=== PATIENT | female | born 1955 ===

== ENCOUNTER 2018-07-26 23:21 | Observation (INO) | payer OTHER ==
[2018-07-27 00:14] LABS: BASO # 0.1 K/uL (0.0-0.2); BASO % 0.7 % (0.0-2.0); EOS # 0.1 K/uL (0.0-0.7); EOS % 1.4 % (0.0-4.0); HEMOGLOBIN 14.3 g/dL (12.0-16.0); LYMPH # 2.6 K/uL (1.0-4.3); LYMPH % 32.9 % (20.0-40.0); MEAN CELL VOLUME 87.9 fl (81.0-99.0); MEAN CORPUSCULAR HEMOGLOBIN 29.6 pg (27.0-31.0); MEAN CORPUSCULAR HGB CONC 33.7 g/dL (33.0-37.0); MEAN PLATELET VOLUME 8.8 fl (7.2-11.7); MONO # 0.5 K/uL (0.0-0.8); MONO % 6.9 % (0.0-10.0); NEUT # 4.7 K/uL (1.8-7.0); NEUT % 58.1 % (50.0-75.0); NRBC % 0.3 % (0.0-0.0); RBC 4.83 Mil/uL (3.80-5.20); RED CELL DISTRIBUTION WIDTH 14.5 % (11.5-14.5)
[2018-07-27 00:16] LABS: INR 0.9; PROTHROMBIN TIME 10.3 Seconds (9.8-13.1)
--- NOTE | 2018-07-27 00:17 | ED PDOC ---
HPI:STROKE - Time Time: 23:49 - Historian Historian: Spouse - Chief Complaint Chief Complaint: Facial droop - Onset Date: 07/27/18 Onset: This morning - Context Context: Home - Associated Symptoms Associated symptoms:: Headache, Nausea, Vomiting - TPA Positive for Contraindication: Yes Reason tPA is not being Administered: late presentation and mild symptoms - Notes: Notes:: 63 years old female with no significant PMHx presents to ER for evaluation of facial droop that she woke up with this morning. Patient reports she developed headache, nausea and vomiting later in the day. PMD: Saturnino Rios NIHSS Stroke Scale - Date/Time Evaluation Performed Date Performed: 07/27/18 Time Performed: 23:50 When Was NIHSS Performed: Code Stroke - How Severe is the Stroke Level of Consciousness: 0=Alert LOC to Questions: 0=Both comments correct LOC to commands: 0=Obeys both correctly Best Gaze: 0=Normal Visual: 0=No visual loss Facial: 2=Partial (lower face paralysis) (of right side) Motor Arm - Left: 0=No drift Motor Arm - Right: 0=No drift Motor Leg - Left: 0=No drift Motor Leg - Right: 0=No drift Limb Ataxia: 0=Absent Sensory: 0=Normal Best Language: 0=No aphasia Dysarthia: 0=Normal articulation Extinction & Inattention (Neglect): 0=Normal, no object Score: 2 rTPA Inclusion/Exclusion - Refusal of Treatment Patient Refused Treatment: No - Inclusion Criteria for Altepase All of the below criteria for inclusion were reviewed: Yes Patient is 18 years or Older: Yes The Clinical Diagnosis of Ischemic Stroke That is Causing a Potentially Disabling Neurological Deficit: Yes Time of Onset is Well Established to be Less Than 270 Minute Before Treatment Would Begin: Yes Risk/Benefit Discussed With Patient/Family Member Present: Yes - Exclusion Criteria for Altepase Current Intracranial Hemorrhage: No Subarachnoid hemorrhage: No Active Internal Bleeding: No Recent (within 3 months) Intracranial or Intraspinal Surgery: No Presence of intracranial conditions that may increase the risk of bleeding: Not Applicable Bleeding Diathesis Including but not limited to: Not Applicable Current Severe Uncontrolled Hypertension: No Past Medical History Reviewed: Historical Data, Nursing Documentation, Vital Signs Vital Signs: Last Vital Signs Temp 98.3 F 07/26/18 23:44 Pulse 65 07/26/18 23:44 Resp 16 07/26/18 23:44 BP 145/89 07/26/18 23:44 Pulse Ox 98 07/26/18 23:44 - Medical History PMH: No Chronic Diseases - Surgical History Surgical History: No Surg Hx - Family History Family History: States: Unknown Family Hx - Living Arrangements Living Arrangements: With Family - Social History Current smoker - smoking cessation education provided: No Drugs: Denies - Home Medications Home Medications: Ambulatory Orders Medication Instructions Recorded Calcium Carbonate/Vitamin D3 1 tab PO DAILY 07/27/18 [Calcium 500 mg Chewable Tablet] Levothyroxine [Synthroid] 125 mcg PO QAM 07/27/18 [place]-3S/Dha/Epa/Fish Oil [Fish 1 cap PO DAILY 07/27/18 Oil [place]-3 Softgel] - Allergies Allergies/Adverse Reactions: Allergies Allergy/AdvReac Type Severity Reaction Status Date / Time No Known Allergies Allergy Verified 07/26/18 23:44 Review of Systems ROS Statement: Except As Marked, All Systems Reviewed And Found Negative Constitutional: Positive for: Other (Facial droop) Gastrointestinal: Positive for: Nausea, Vomiting Neurological: Positive for: Headache Physical Exam - Reviewed Nursing Documentation Reviewed: Yes Vital Signs Reviewed: Yes - Physical Exam Head Exam: Positive for: ATRAUMATIC. Negative for: NORMAL INSPECTION ((+)right facial droop) Skin: Positive for: Normal Color, Warm, Dry Eye Exam: Positive for: Normal appearance, EOMI, PERRL Neck: Positive for: Normal, Painless ROM, Supple Cardiovascular/Chest: Positive for: Regular Rate, Rhythm. Negative for: Murmur Respiratory: Positive for: Normal Breath Sounds. Negative for: Respiratory Distress Extremity: Positive for: Normal ROM. Negative for: Pedal Edema, Swelling Neurological/Psych: Positive for: Awake, Alert, Normal Tone, Symmetric/Intact Strength, Oriented, Gait (normal), Motor/Sensory Deficits (right facial numbness and droop noted), Facial Droop (righh) - Laboratory Results Result Diagrams: 07/26/18 23:55 07/26/18 23:55 - ECG O2 Sat by Pulse Oximetry: 98 (RA) Pulse Ox Interpretation: Normal - Critical Care Total Time (In Min): 30 Documented Critical Care: Time excludes all time spent performint seperately billable procedures Medical Decision Making Medical Decision Making: Time: 2347 Initial Impression: 63 y/o female with acute right sided facial paralysis, headache and vomiting. Initial Plan: --Type and screen --Head CT w/o contrast --EKG --CMP --Hemoglobin --Lipid panel --Troponin I --CBC --PTT --PT --Chest x-ray --[place] Code stroke activated. 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 Patient will be admitted for acute CVA vs. hill's palsy. [id number] Alvarez, neurologist nurse consultant, who says based on patient's symptoms and late presentation advised TPA and Aspirin. Dr. Alvarez will evaluate patient. [id number] The study shows normal configuration of sella turcica. There are no intra or extra-axial collections. There is no mass effect or midline shift. There is no evidence of hematoma formation. No hydrocephalus is present. No abnormal calcifications are noted. No significant abnormalities are seen either in the posterior fossa or supratentorial compartment. The sinuses and mastoid air cells are patent. IMPRESSION: No evidence of acute intracranial pathology. 0015 Spoke to Deni Child, nurse practitioner in Dr. Rios's office, who accepts patient. ----- Scribe Attestation: Documented by Melissa Brewer, acting as a scribe for Osorio Malagon MD. Provider Scribe Attestation: All medical record entries made by the Scribe were at my direction and personally dictated by me. I have reviewed the chart and agree that the record accurately reflects my personal performance of the history, physical exam, medical decision making, and the department course for this patient. I have also personally directed, reviewed, and agree with the discharge instructions and di sposition. Disposition - Clinical Impression Clinical Impression: Facial droop, CVA (cerebral vascular accident) - Disposition Disposition Time: 00:00 Condition: FAIR - Pt Status Changed To: Hospital Disposition Of: Inpatient - Admit Certification Admit to Inpatient:: After my assessment, the patient will require hospitalization for at least two midnights. This is because of the severity of symptoms shown, intensity of services needed, and/or the medical risk in this patient being treated as an outpatient.
[2018-07-27 00:18] LABS: PARTIAL THROMBOPLASTIN TIME 30.6 Seconds (25.6-37.1)
[2018-07-27 00:20] LABS: ALB/GLOB RATIO 1.3 (1.0-2.1); ALBUMIN 4.6 g/dL (3.5-5.0); ALT/SGPT 49 U/L (9-52); AST/SGOT 31 U/L (14-36); BLOOD UREA NITROGEN 16 mg/dl (7-17); CALCIUM 9.3 mg/dL (8.4-10.2); GFR NON-AFRICAN AMERICAN > 60; HDL CHOLESTEROL 78 MG/DL (30-70)
[2018-07-27 00:31] LABS: LDL CHOLESTEROL 144 mg/dL (0-129)
[2018-07-27] MEDS: Levothyroxine 125 MCG TAB PO SCH (07:00)
--- NOTE | 2018-07-27 07:55 | RAD ---
Date of service: 07/27/2018 HISTORY: Code Stroke COMPARISON: No prior. TECHNIQUE: 1 view obtained. FINDINGS: LUNGS: No active pulmonary disease. PLEURA: No significant pleural effusion identified, no pneumothorax apparent. CARDIOVASCULAR: No aortic atherosclerotic calcification present. Normal cardiac size. No pulmonary vascular congestion. OSSEOUS STRUCTURES: No significant abnormalities. VISUALIZED UPPER ABDOMEN: Normal. OTHER FINDINGS: None. IMPRESSION: No acute cardiopulmonary disease appreciated.
--- NOTE | 2018-07-27 08:38 | CARD ---
APPROVED REPORT Date of service: 07/27/2018 EKG Measurement Heart [id number] <Conclusion> Normal sinus rhythm Low voltage QRS Nonspecific ST and T wave abnormality Abnormal ECG
[2018-07-27] MEDS: Calcium-Vit D 500 mg-200 Units Tab UD PO SCH (08:45)
--- NOTE | 2018-07-27 09:26 | CT ---
Date of service: 07/26/2018 PROCEDURE: CT HEAD WITHOUT CONTRAST. HISTORY: code stroke COMPARISON: None available. TECHNIQUE: Axial computed tomography images were obtained through the head/brain without intravenous contrast. Radiation dose: Total exam DLP = 1040.32 mGy-cm. This CT exam was performed using one or more of the following dose reduction techniques: Automated exposure control, adjustment of the mA and/or kV according to patient size, and/or use of iterative reconstruction technique. FINDINGS: HEMORRHAGE: No intracranial hemorrhage. BRAIN: Normal yun-white matter differentiation and density are appreciated throughout the cerebrum and cerebellum with the brainstem appearing unremarkable as well. There is no mass effect. There is no suspicious extra-axial fluid collection and the midline brain anatomy appears diffusely unremarkable. VENTRICLES: Unremarkable. No hydrocephalus. CALVARIUM: Unremarkable. PARANASAL SINUSES: Unremarkable as visualized. No significant inflammatory changes. MASTOID AIR CELLS: Unremarkable as visualized. No inflammatory changes. OTHER FINDINGS: None. IMPRESSION: Unremarkable unenhanced head CT. Preliminary report provided by Margaret, 07/27/2018, 12:08 a.m..
[2018-07-27 09:34] LABS: ALB/GLOB RATIO 1.2 (1.0-2.1); ALBUMIN 4.3 g/dL (3.5-5.0); ALT/SGPT 52 U/L (9-52); AST/SGOT 28 U/L (14-36); BLOOD UREA NITROGEN 13 mg/dl (7-17); CALCIUM 8.8 mg/dL (8.4-10.2); GFR NON-AFRICAN AMERICAN > 60
[2018-07-27] MEDS: Omega-3-Acid Ethyl Esters 1 GM Cap PO SCH (12:25)
[2018-07-27] MEDS: Artificial Tears Opht Soln OS SCH ×3 (12:26→21:17)
--- NOTE | 2018-07-27 12:58 | CP.PCM.CON ---
History of Present Illness - History of Present Illness History of Present Illness: Neurology Consultation Note: Consultation Requested by Baron Child APN Mrs. Nilay Morales is a 63 y/o female with a PMHx of Hypothyroidism . She was admitted for right sided facial droop that started on 07/23/18, afternoon. Pt states that she came back home after running errands when she began to have a severe headache. Shortly after developing this h/a, she noticed that the right side of her face was "sleepy" and drooping. Pt states that she has been taking Tylenol for her h/a without relief as needed since Thursday. She was concerned about the facial droop because "it didn't seem to have an effect on my arms or legs." She decided to come to the hospital last night because the h/a was unbearable. Pt denies any recent dental work or surgeries, no recent travel, no recent illness or infection. She still has the h/a mildly (approx 3/10 now and is dull); she does have some dizziness. Otherwise she denies vi sual changes, chest pain, palpitations, sob, cough, dysuria, abd pain, n/v/d, paresthesias, fever/chills, fatigue/malaise. Initial CT Head done in the ED was unremarkable. At this time she has had ECHO and Brain MRI completed. We have been consulted to assist in the management and care of this pt. Review of Systems - Constitutional Constitutional: As Per HPI - EENT Eyes: As Per HPI Ears: As Per HPI Nose/Mouth/Throat: As Per HPI - Breasts Breasts: As Per HPI - Cardiovascular Cardiovascular: As Per HPI - Respiratory Respiratory: As Per HPI - Gastrointestinal Gastrointestinal: As Per HPI - Genitourinary Genitourinary: As Per HPI - Reproductive: Female Reproductive:Female: As Per HPI - Menstruation Menstruation: As Per HPI - Musculoskeletal Musculoskeletal: As Per HPI - Integumentary Integumentary: As Per HPI - Neurological Neurological: As Per HPI - Psychiatric Psychiatric: As Per HPI - Endocrine Endocrine: As Per HPI - Hematologic/Lymphatic Hematologic: As Per HPI Past Patient History - Infectious Disease Hx of Infectious Diseases: None - Tetanus Immunizations Tetanus Immunization: Unknown - Past Medical History & Family History Past Medical History?: Yes Past Family History: Reviewed and not pertinent - Past Social History Smoking Status: Never Smoked Chewing Tobacco Use: No Cigar Use: No Occupation: unemployed Alcohol: None Drugs: Denies Home Situation {Lives}: With Family Domestic Violence: Negative - CARDIAC Hx Cardiac Disorders: No - PULMONARY Hx Respiratory Disorders: No - NEUROLOGICAL Hx Neurological Disorder: No - HEENT Hx HEENT Problems: No - RENAL Hx Chronic Kidney Disease: No - ENDOCRINE/METABOLIC Hx Endocrine Disorders: Yes Hx Hypothyroidism: Yes - HEMATOLOGICAL/ONCOLOGICAL Hx Blood Disorders: No - INTEGUMENTARY Hx Dermatological Problems: No - MUSCULOSKELETAL/RHEUMATOLOGICAL Hx Musculoskeletal Disorders: No Hx Falls: No - GASTROINTESTINAL Hx Gastrointestinal Disorders: No - GENITOURINARY/GYNECOLOGICAL Hx Genitourinary Disorders: No - PSYCHIATRIC Hx Psychophysiologic Disorder: No Hx Substance Use: No - SURGICAL HISTORY Hx Surgeries: No - ANESTHESIA Hx Anesthesia: No Hx Anesthesia Reactions: No Hx Malignant Hyperthermia: No Has any member of the family had a problem w/ anesthesia?: No Meds Allergies/Adverse Reactions: Allergies Allergy/AdvReac Type Severity Reaction Status Date / Time No Known Allergies Allergy Verified 07/26/18 23:44 - Medications Medications: Current Medications Acetaminophen (Tylenol 325mg Tab) 650 mg PO Q6 PRN PRN Reason: Pain, Mild (1-3) Acyclovir (Zovirax) 400 mg PO TID [facility]; Protocol Last Admin: 07/27/18 12:26 Dose: 400 mg Artificial Tears (Artificial Tears) 2 drop OS Q4 [facility] Last Admin: 07/27/18 12:26 Dose: 2 units Atorvastatin Calcium (Lipitor) 20 mg PO HS [facility] Calcium/Vitamin D (Oyster Shell Calcium/Vitamin D 500 Mg-200 Iu) 1 tab PO DAILY [facility] Last Admin: 07/27/18 08:45 Dose: 1 tab Levothyroxine Sodium (Synthroid) 125 mcg PO DAILY@0630 [facility] Last Admin: 07/27/18 07:00 Dose: 125 mcg Iiilr-4-Xtlz Ethyl Esters (Lovaza) 2 gm PO DAILY [facility] Last Admin: 07/27/18 12:25 Dose: 2 gm Prednisone (Prednisone Tab) 60 mg PO DAILY [facility] Last Admin: 07/27/18 12:25 Dose: 60 mg Tramadol HCl (Ultram) 50 mg PO Q6 PRN PRN Reason: Pain, moderate (4-7) Physical Exam - Constitutional Appears: Well, Non-toxic, No Acute Distress - Head Exam Head Exam: ATRAUMATIC, NORMOCEPHALIC - Eye Exam Eye Exam: EOMI, PERRL. absent: Normal appearance Pupil Exam: NORMAL ACCOMODATION, PERRL Additional comments: Pupils reactive b/l Unable to close right eye completely No diplopia on exam - ENT Exam ENT Exam: Mucous Membranes Moist, Normal Exam - Neck Exam Neck exam: Positive for: Full Rom, Normal Inspection - Respiratory Exam Respiratory Exam: NORMAL BREATHING PATTERN - Cardiovascular Exam Cardiovascular Exam: REGULAR RHYTHM - GI/Abdominal Exam GI & Abdominal Exam: Normal Bowel Sounds, Soft - Extremities Exam Extremities exam: Positive for: full ROM, normal inspection. Negative for: calf tenderness, pedal edema - Back Exam Back exam: FULL ROM, NORMAL INSPECTION - Neurological Exam Neurological exam: Alert, Normal Gait, Oriented x3, Reflexes Normal Additional comments: AAOx3 Speech clear, fluid; no dysarthria; no aphasia Pupils reactive b/l Unable to close right eye completely No diplopia on exam + flattened right side forehead compared to left + right sided facial droop FROM to all extremities; no sensory deficits to extremities. No tremors or abnormal movements Gait steady - Psychiatric Exam Psychiatric exam: Normal Affect, Normal Mood - Skin Skin Exam: Dry, Intact, Normal Color Results - Vital Signs Recent Vital Signs: Last Vital Signs Temp 98.0 F 07/27/18 07:44 Pulse 60 07/27/18 09:00 Resp 20 07/27/18 07:44 BP 127/80 07/27/18 07:44 Pulse Ox 97 07/27/18 07:44 - Labs Result Diagrams: 07/26/18 23:55 07/27/18 08:45 Labs: Laboratory Results - last 24 hr 07/26/18 07/26/18 07/26/18 23:52 23:55 23:55 WBC 8.0 RBC 4.83 Hgb 14.3 Hct 42.5 MCV 87.9 MCH 29.6 MCHC 33.7 RDW 14.5 Plt Count 223 MPV 8.8 Neut % (Auto) 58.1 Lymph % (Auto) 32.9 [place] % (Auto) 6.9 Eos % (Auto) 1.4 Baso % (Auto) 0.7 Neut # (Auto) 4.7 Lymph # (Auto) 2.6 [place] # (Auto) 0.5 Eos # (Auto) 0.1 Baso # (Auto) 0.1 PT INR APTT Sodium 140 Potassium 3.7 Chloride 105 Carbon Dioxide 24 Anion Gap 15 BUN 16 Creatinine 0.6 L Est GFR ( Amer) > 60 Est GFR (Non-Af Amer) > 60 POC Glucose (mg/dL) 131 H Random Glucose 137 H Hemoglobin A1c Calcium 9.3 Total Bilirubin 0.6 AST 31 ALT 49 Alkaline Phosphatase 106 Troponin I < 0.0120 Total Protein 8.2 Albumin 4.6 Globulin 3.6 Albumin/Globulin Ratio 1.3 Triglycerides 196 H Cholesterol 274 H LDL Cholesterol Direct 144 H HDL Cholesterol 78 H Infectious Ford Assay Blood Type Blood Type Confirm Antibody Screen BBK History Checked 07/26/18 07/26/18 07/26/18 23:55 23:55 23:55 WBC RBC Hgb Hct MCV MCH MCHC RDW Plt Count MPV Neut % (Auto) Lymph % (Auto) [place] % (Auto) Eos % (Auto) Baso % (Auto) Neut # (Auto) Lymph # (Auto) Ford # (Auto) Eos # (Auto) Baso # (Auto) PT 10.3 INR 0.9 APTT 30.6 Sodium Potassium Chloride Carbon Dioxide Anion Gap BUN Creatinine Est GFR ( Amer) Est GFR (Non-Af Amer) POC Glucose (mg/dL) Random Glucose Hemoglobin A1c 6.2 Calcium Total Bilirubin AST ALT Alkaline Phosphatase Troponin I Total Protein Albumin Globulin Albumin/Globulin Ratio Triglycerides Cholesterol LDL Cholesterol Direct HDL Cholesterol Infectious [place] Assay Blood Type A POSITIVE Blood Type Confirm Antibody Screen Negative BBK History Checked No verified bt 07/27/18 07/27/18 07/27/18 02:15 05:51 08:45 WBC RBC Hgb Hct MCV MCH MCHC RDW Plt Count MPV Neut % (Auto) Lymph % (Auto) [place] % (Auto) Eos % (Auto) Baso % (Auto) Neut # (Auto) Lymph # (Auto) Ford # (Auto) Eos # (Auto) Baso # (Auto) PT INR APTT Sodium 140 Potassium 4.5 Chloride 106 Carbon Dioxide 24 Anion Gap 15 BUN 13 Creatinine 0.5 L Est GFR ( Amer) > 60 Est GFR (Non-Af Amer) > 60 POC Glucose (mg/dL) Random Glucose 106 H Hemoglobin A1c Calcium 8.8 Total Bilirubin 0.6 AST 28 ALT 52 Alkaline Phosphatase 106 Troponin I Total Protein 7.9 Albumin 4.3 Globulin 3.6 Albumin/Globulin Ratio 1.2 Triglycerides Cholesterol LDL Cholesterol Direct HDL Cholesterol Infectious [place] Assay Negative Blood Type Blood Type Confirm A POSITIVE Antibody Screen BBK History Checked Assessment & Plan (1) Hill's palsy Assessment and Plan: Imaging reviewed: -CT Head (07/26/18): Unremarkable unenhanced head CT. -MRI Brain (07/27/18): Limited age-related neuro degenerative changes are better appreciated the current examination than the prior head CT. No acute or subacute brain infarction, mass effect or intracranial hemorrhage is identified at this time once again. Mrs. Ronal Morales's right sided facial droop is likely 2/2 [place] Palsy. An acute/subacute CVA has been ruled out on the MRI. She has already been started on Prednisone 60 mg PO Daily and Acyclovir 400 mg PO TID. We recommend that she continue Prednisone 60 mg PO daily x3 days, then 40 mg PO daily x2 days, then 20 mg PO daily x2 days. We also recommend that she continue Acyclovir 800 mg PO TID x15 days. Continue eye gtts; continue use of eye patch to right eye at HS. She is stable neurologically for d/c home with the above mentioned Rx. She is to f/u with neuro in the office within 1 month for re-evaluation. Thank you for this interesting consultation. Please reconsult prn. Darlene Romero, GABRIELLA, [employer] SECRETARY d/w Dr. Alvarez Status: Acute - Date & Time Date: 07/27/18 Time: 14:44
--- NOTE | 2018-07-27 13:30 | MRI ---
Date of service: 07/27/2018 PROCEDURE: MRI BRAIN WITHOUT CONTRAST HISTORY: r/o cva COMPARISON: None available. TECHNIQUE: Multiplanar, multisequence MR images of the brain were obtained without intravenous contrast enhancement. FINDINGS: HEMORRHAGE: None DWI: No evidence of an acute or early subacute infarction. BRAIN PARENCHYMA: Good corticomedullary differentiation is seen. Limited, proportional, diffuse expansion of the ventriculosulcal and cisternal spaces is appreciated with white matter lucency compatible with diffuse cerebral atrophy and chronic microangiopathy. No suspicious extra-axial fluid collection is identified and the midline brain anatomy appears grossly nonfocal as imaged. There is no mass effect throughout. VENTRICLES: Unremarkable. No hydrocephalus. CRANIUM: Unremarkable. ORBITS: Grossly unremarkable. PARANASAL SINUSES/MASTOIDS: Clear VASCULAR SYSTEM: Skull base flow voids intact. OTHER FINDINGS: None. IMPRESSION: Limited age-related neuro degenerative changes are better appreciated the current examination than the prior head CT. No acute or subacute brain infarction, mass effect or intracranial hemorrhage is identified at this time once again.
[2018-07-27 16:09] VITALS: RESP 18
--- NOTE | 2018-07-27 19:40 | CARD ---
APPROVED REPORT Date of service: 07/27/2018 EXAM: Two-dimensional and M-mode echocardiogram with Doppler and color Doppler. Other Information Quality : GoodRhythm : NSR INDICATION CVA/TIA 2D DIMENSIONS IVSd0.80 (0.7-1.1cm)LVDd5.07 (3.9-5.9cm) LVOT Diameter1.79 (1.8-2.4cm)PWd0.74 (0.7-1.1cm) IVSs1.38 (0.8-1.2cm)LVDs2.49 (2.5-4.0cm) FS (%) 50.9 %PWs1.16 (0.8-1.2cm) M-Mode DIMENSIONS Left Atrium (MM)4.35 (2.5-4.0cm)IVSd1.32 (0.7-1.1cm) Aortic Root2.97 (2.2-3.7cm)LVDd4.44 (4.0-5.6cm) Aortic Cusp Exc.2.32 (1.5-2.0cm)PWd0.88 (0.7-1.1cm) IVSs1.59 cmFS (%) 36 % LVDs2.85 (2.0-3.8cm)PWs1.24 cm Aortic Valve AoV Peak Ouzvjeoo030.8cm/sAoV VTI32.2cmAO Peak GR.10mmHg LVOT Peak Kcnyobms342.6cm/sLVOT VTI27.85cmAO Mean GR.5mmHg DEISY (VMAX)0.00pr3GVY (VTI)1.11cm2 Mitral Valve MV E Pnhhcbee02.3cm/sMV DECEL [id number] A Taqrcnat92.7cm/s MV DUN07lzL/A ratio1.1MVA (PHT)3.49cm2 TDI Lateral E' Peak V13.04cm/sMedial E' Peak V7.01cm/sE/Lateral E'4.9 E/Medial E'9.0 Tricuspid Valve TR Peak Danrmjqp337zc/sRAP QJLOIELM65xuMfRC Peak Gr.19mmHg JLUR30cpSj LEFT VENTRICLE The left ventricle is normal size. There is normal left ventricular wall thickness. The left ventricular systolic function is normal. The estimated ejection fraction is 55-60% No regional wall motion abnormalities noted.. Transmitral Doppler flow pattern is Grade I-abnormal relaxation pattern. No left ventricle thrombus noted on this study. There is no ventricular septal defect visualized. There is no left ventricular aneurysm. There is no mass noted in the left ventricle. RIGHT VENTRICLE The right ventricle is normal size. There is normal right ventricular wall thickness. The right ventricular systolic function is normal. ATRIA The left atrium is mildly dilated. The right atrium size is normal. The interatrial septum is intact with no evidence for an atrial septal defect. AORTIC VALVE The aortic valve is normal in structure. No aortic regurgitation is present. There is no aortic valvular stenosis. There is no aortic valvular vegetation. MITRAL VALVE The mitral valve is normal in structure. There is no evidence of mitral valve prolapse. There is no mitral valve stenosis. There is mild mitral valve regurgitation noted. TRICUSPID VALVE The tricuspid valve is normal in structure. There is mild tricuspid valve regurgitation noted. RVSP is calculated at 25 mm Hg. There is no tricuspid valve prolapse or vegetation. There is no tricuspid valve stenosis. PULMONIC VALVE The pulmonary valve is normal in structure. There is trace pulmonic valvular regurgitation. There is no pulmonic valvular stenosis. GREAT VESSELS The aortic root is normal in size. The ascending aorta is normal in size. The pulmonary artery is normal. The IVC is normal in size and collapses >50% with inspiration. PERICARDIAL EFFUSION There is no pericardial effusion. There is no pleural effusion. <Conclusion> The estimated ejection fraction is 55-60% Transmitral Doppler flow pattern is Grade I-abnormal relaxation pattern. The left atrium is mildly dilated. There is mild mitral valve regurgitation noted. There is mild tricuspid valve regurgitation noted. RVSP is calculated at 25 mm Hg. The interatrial septum is intact with no evidence for an atrial septal defect.
--- NOTE | 2018-07-28 00:47 | CP.PCM.HP ---
History of Present Illness - History of Present Illness History of Present Illness: CC: Right sided facial droop. HPI: 55 y/o female with a PMH of hypothyroidism and hypertriglyceridemia presented to the ED with right sided facial droop. As per the pt, she woke up wi th a headache and noticed a facial droop. No neuro or motor deficits are noted; CT head resulted as negative. PMH: hypothyroidism, hypertriglyceridemia. PSH: None. Allergies: NKDA. Subjective Review of Systems: Reviewed and no additional remarkable complaints except facial droop to the right side and mild rash to the chin. Objective Vital Signs Stable Appears: Non-toxic, No Acute Distress. Head Exam: RIGHT SIDED FACIAL DROOP NOTED. Eye Exam: Right eye lower lid remains open from facial droop; PERRLA. Respiratory Exam: NORMAL BREATHING PATTERN, breath sounds clear to auscultation. Cardiovascular Exam: +S1, +S2. RRR. GI & Abdominal Exam: Soft, non-tender, non-distended. Neurological Exam: Alert, Awake, Oriented x3. Musculoskeletal Exam: 5/5 BUE strength, 5/5 BLE strength. Psychiatric exam: Normal Affect, Normal Mood, Calm and cooperative. Skin Exam: Normal Color, Warm, Dry. Mild, superficial rash from posterior aspect of chin, to the right side of the face noted. Assessment/Impression/Plan: 1.) [place] Palsy -Facial droop in the absence of motor/neuro deficits; CT head was negative. -MRI of the brain will be done to confirm findings of initial CT head. -Steroid and Antiviral therapy: Prednisone 60 mg taper + Acyclovir 400 mg TID. -Initiate STATIN therapy. -Ultram for headaches. -Consults input appreciated. -Patch for right eye. -HSV panel. -Continue current treatment. Present on Admission - Present on Admission Any Indicators Present on Admission: No Past Patient History - Infectious Disease Hx of Infectious Diseases: None - Tetanus Immunizations Tetanus Immunization: Unknown - Past Medical History & Family History Past Medical History?: Yes Past Family History: Reviewed and not pertinent - Past Social History Smoking Status: Never Smoked Chewing Tobacco Use: No Cigar Use: No Occupation: unemployed Alcohol: None Drugs: Denies Home Situation {Lives}: With Family Domestic Violence: Negative - CARDIAC Hx Cardiac Disorders: No - PULMONARY Hx Respiratory Disorders: No - NEUROLOGICAL Hx Neurological Disorder: No - HEENT Hx HEENT Problems: No - RENAL Hx Chronic Kidney Disease: No - ENDOCRINE/METABOLIC Hx Endocrine Disorders: Yes Hx Hypothyroidism: Yes - HEMATOLOGICAL/ONCOLOGICAL Hx Blood Disorders: No - INTEGUMENTARY Hx Dermatological Problems: No - MUSCULOSKELETAL/RHEUMATOLOGICAL Hx Musculoskeletal Disorders: No Hx Falls: No - GASTROINTESTINAL Hx Gastrointestinal Disorders: No - GENITOURINARY/GYNECOLOGICAL Hx Genitourinary Disorders: No - PSYCHIATRIC Hx Psychophysiologic Disorder: No Hx Substance Use: No - SURGICAL HISTORY Hx Surgeries: No - ANESTHESIA Hx Anesthesia: No Hx Anesthesia Reactions: No Hx Malignant Hyperthermia: No Has any member of the family had a problem w/ anesthesia?: No Meds Allergies/Adverse Reactions: Allergies Allergy/AdvReac Type Severity Reaction Status Date / Time No Known Allergies Allergy Verified 07/26/18 23:44 Results - Vital Signs Recent Vital Signs: Last Vital Signs Temp 97.7 F 07/28/18 00:39 Pulse 63 07/28/18 00:39 Resp 18 07/28/18 00:39 BP 113/65 07/28/18 00:39 Pulse Ox 97 07/28/18 00:39 - Labs Result Diagrams: 07/26/18 23:55 07/27/18 08:45 Labs: Laboratory Results - last 24 hr 07/26/18 07/26/18 07/27/18 23:55 23:55 02:15 Sodium Potassium Chloride Carbon Dioxide Anion Gap BUN Creatinine Est GFR ( Amer) Est GFR (Non-Af Amer) POC Glucose (mg/dL) Random Glucose Hemoglobin A1c 6.2 Calcium Total Bilirubin AST ALT Alkaline Phosphatase Total Protein Albumin Globulin Albumin/Globulin Ratio Infectious [place] Assay Negative Blood Type A POSITIVE Blood Type Confirm Antibody Screen Negative BBK History Checked No verified bt 07/27/18 07/27/18 07/27/18 05:51 08:45 21:27 Sodium 140 Potassium 4.5 Chloride 106 Carbon Dioxide 24 Anion Gap 15 BUN 13 Creatinine 0.5 L Est GFR ( Amer) > 60 Est GFR (Non-Af Amer) > 60 POC Glucose (mg/dL) 170 H Random Glucose 106 H Hemoglobin A1c Calcium 8.8 Total Bilirubin 0.6 AST 28 ALT 52 Alkaline Phosphatase 106 Total Protein 7.9 Albumin 4.3 Globulin 3.6 Albumin/Globulin Ratio 1.2 Infectious [place] Assay Blood Type Blood Type Confirm A POSITIVE Antibody Screen BBK History Checked Assessment & Plan (1) Hill's palsy Status: Acute (2) Facial droop Status: Acute
[2018-07-28] MEDS: Artificial Tears Opht Soln OS SCH ×4 (02:13→12:23)
[2018-07-28] MEDS: Levothyroxine 125 MCG TAB PO SCH (05:41)
[2018-07-28 08:11] VITALS: TEMP 97.8
[2018-07-28] MEDS: Calcium-Vit D 500 mg-200 Units Tab UD PO SCH (08:38)
[2018-07-28] MEDS: Omega-3-Acid Ethyl Esters 1 GM Cap PO SCH (08:38)
[2018-07-28 08:56] LABS: HEMOGLOBIN 14.1 g/dL (12.0-16.0); MEAN CELL VOLUME 88.6 fl (81.0-99.0); MEAN CORPUSCULAR HEMOGLOBIN 29.7 pg (27.0-31.0); MEAN CORPUSCULAR HGB CONC 33.5 g/dL (33.0-37.0); RBC 4.74 Mil/uL (3.80-5.20); RED CELL DISTRIBUTION WIDTH 14.8 % (11.5-14.5); WHITE BLOOD COUNT 8.7 K/uL (4.8-10.8)
[2018-07-28 12:06] VITALS: BP 145/84; PULSE 64; O2SAT 99
--- NOTE | 2018-07-28 13:16 | US ---
Date of service: 07/27/2018 PROCEDURE: Duplex ultrasound of the carotid and vertebral arteries. HISTORY: h/a, dizziness, n/v r/o cva and vbi COMPARISON: None available. TECHNIQUE: Grayscale and duplex Doppler evaluation of the cervical carotid and vertebral arteries were performed. The common carotid, carotid bifurcations and cervical ICA and proximal ECA were evaluated. The vertebral arteries were evaluated for gross patency and direction. FINDINGS: There are calcified atherosclerotic plaques in the carotid bulbs and proximal internal and external carotid arteries. RIGHT CAROTID ARTERIES: Common Carotid Artery: Normal. Maximal flow velocity of 62.4 cm/s. Carotid Bifurcation: Normal. Internal Carotid Artery:Normal. Maximal flow velocity of 57.2 cm/s. External Carotid Artery (proximal branches): Normal. Maximal flow velocity of 147.6 cm/s. ICA/CCA Ratio: 0.9 LEFT CAROTID ARTERIES: Common Carotid Artery: Normal. Maximal flow velocity of 74.2 cm/s. Carotid Bifurcation: Normal. Internal Carotid Artery:Normal. Maximal flow velocity of 58.4 cm/s. External Carotid Artery (proximal branches): Normal. Maximal flow velocity of 109.5 cm/s. ICA/CCA Ratio: 0.8 VERTEBRAL ARTERIES: Right Vertebral Artery: Patent. Antegrade flow. Left Vertebral Artery: Patent. Antegrade flow. OTHER FINDINGS: No atherosclerotic calcification present IMPRESSION: 1. No evidence of hemodynamically significant stenosis in the internal carotid arteries by peak systolic velocity criteria. 2. Elevated peak systolic velocities in both external carotid arteries, higher on the right. 3. Patent bilateral vertebral arteries with antegrade flow.
== END 2018-07-28 13:12 | disposition home or self-care (01) ==
LOC: H.ER 23:21 → INTOOBSV 07-27 00:05 → H.ERHOLD 07-27 00:05 → H.TEL 07-27 05:38
PROVIDERS: ADMIT Family Medicine; ATTEND Family Medicine
DX: G51.0 Bell's palsy (principal); E03.9 Hypothyroidism, unspecified; E78.1 Pure hyperglyceridemia
CPT/HCPCS: 36415; 70450; 70551; 71045; 80053; 80061; 82948; 83036; 84484; 85025; 85027; 85610; 85730; 86308; 86695; 86696; 86850; 86900; 93005; 93306; 93880; 97116; 97161; 99285; G0378; G8978; G8979